=== PATIENT | female | born 1960 | race Caucasian/White ===

== ENCOUNTER 2017-11-07 14:12 | Emergency (ER) | payer OTHER ==
[~2017-11-07 14:12] MED LIST: CIPR250T2 PO; LOMO PO; ZOFR4TAB3 SL
[2017-11-07 14:17] VITALS: BP 166/73; PULSE 67; RESP 20; TEMP 97.8; O2SAT 100
[2017-11-07] MEDS ORDERED: LISI-519 PO (16:07)
[2017-11-07] MEDS ORDERED: ONDANSETRON HCL 4 MG/2 ML VIAL IV PUSH ONE (16:45)
[2017-11-07] MEDS ORDERED: SODIUM CHLORID 0.9% 500 ML INJ 500 ML IV ONE (16:45)
[2017-11-07] MEDS ORDERED: KETOROLAC TROMETHAMINE 30 MG/ML (IVP) VIAL IV PUSH ONE (16:45)
[2017-11-07 17:12] LABS: AUTOMATED NEUTROPHIL # 6.7 TH/MM3 (1.8-7.7); BASOPHIL # 0.1 TH/MM3 (0-0.2); BASOPHIL % 0.9 % (0.0-2.0); EOSINOPHIL % 0.4 % (0.0-4.0); HEMATOCRIT 41.2 % (35.0-46.0); HEMOGLOBIN 13.6 GM/DL (11.6-15.3); LYMPH % 16.3 % (9.0-44.0); LYMPHOCYTE # 1.4 TH/MM3 (1.0-4.8); MEAN CELL VOLUME 87.9 FL (80.0-100.0); MEAN CORPUSCULAR HEMOGLOBIN 29.1 PG (27.0-34.0); MEAN CORPUSCULAR HGB CONC 33.1 % (32.0-36.0); MEAN PLATELET VOLUME 7.8 FL (7.0-11.0); MONOCYTE # 0.3 TH/MM3 (0-0.9); NEUT % 79.4 % (16.0-70.0); PLATELET COUNT 223 TH/MM3 (150-450); RED BLOOD COUNT 4.69 MIL/MM3 (4.00-5.30); RED CELL DISTRIBUTION WIDTH 12.7 % (11.6-17.2); WHITE BLOOD COUNT 8.5 TH/MM3 (4.0-11.0)
[2017-11-07 17:19] LABS: CHLORIDE 103 MEQ/L (98-107); SODIUM (NA) 138 MEQ/L (136-145)
[2017-11-07 17:22] LABS: CALCIUM 9.3 MG/DL (8.5-10.1)
[2017-11-07 17:23] LABS: ALBUMIN 4.1 GM/DL (3.4-5.0); BICARBONATE 27.8 MEQ/L (21.0-32.0); BLOOD UREA NITROGEN 13 MG/DL (7-18); GLUCOSE,RANDOM 97 MG/DL (74-106)
[2017-11-07 17:26] LABS: ALT (GPT) 29 U/L (10-53); AST (GOT) 21 U/L (15-37); GLOMERULAR FILTRATION RATE 65 ML/MIN (>89)
[2017-11-07 17:28] LABS: TOTAL BILIRUBIN ADULT 0.4 MG/DL (0.2-1.0)
[2017-11-07 17:29] LABS: ALKALINE PHOSPHATASE 87 U/L (45-117)
[2017-11-07 17:31] LABS: TROPONIN I LESS THAN 0.02 NG/ML (0.02-0.05)
--- NOTE | 2017-11-07 18:07 | PD ---
HPI Chief Complaint: Hypertension Time Seen by Provider: 16:11 Travel History International Travel<30 days: No Contact w/Intl Traveler<30days: No Traveled to known affect area: No History of Present Illness HPI Patient is a 57-year-old female comes in after an episode of dizziness and nausea. She says she was at work when this started. She says she got nervous and she checked her blood pressure is little elevated, so she came in. She says she's never had any chest pain or shortness of breath. She drink some Sprite and she is feeling better. She reports multiple sick contacts. She says she has a slight headache to the front of her head. She takes blood pressure medicine regularly. She has not vomited. [facility] Past Medical History Diminished Hearing: No Hypertension: Yes Immunizations Current: Yes Tetanus Vaccination: > 5 Years Influenza Vaccination: No ?: Not Past Surgical History Appendectomy: Yes Hysterectomy: Yes (PARTIAL) Social History Alcohol Use: Yes (RARELY) Tobacco Use: No Substance Use: No Allergies-Medications (Allergen,Severity, Reaction): Coded Allergies: adhesive (Unverified Allergy, Severe, BLISTER, 11/07/17) morphine (Unverified Allergy, Severe, Itching, 11/07/17) Reported Meds & Prescriptions Reported Meds & Active Scripts Active Reported Lisinopril 5 Mg Tab 5 Mg PO DAILY Review of Systems Except as stated in HPI: all other systems reviewed are Neg General / Constitutional: No: Fever, Chills Eyes: No: Blurred Vision HENT: Positive: Headaches, Lightheadedness Cardiovascular: No: Chest Pain or Discomfort Respiratory: No: Shortness of Breath Gastrointestinal: Positive: Nausea, No: Vomiting, Abdominal Pain Genitourinary: No: Dysuria Musculoskeletal: No: Myalgias, Edema Skin: No Rash, No Change in Pigmentation Neurologic: Positive: Dizziness, No: Weakness Physical Exam Narrative GENERAL: Awake and alert, in no acute distress. SKIN: Focused skin assessment warm/dry. HEAD: Atraumatic. Normocephalic. EYES: Pupils equal and round. No scleral icterus. EOMI. ENT: Mucous membranes pink and moist. NECK: Trachea midline. No JVD. CARDIOVASCULAR: Regular rate and rhythm. No murmur appreciated. RESPIRATORY: No accessory muscle use. Clear to auscultation. Breath sounds equal bilaterally. GASTROINTESTINAL: Abdomen soft, non-tender, nondistended. MUSCULOSKELETAL: No obvious deformities. No clubbing. No cyanosis. No edema. NEUROLOGICAL: Awake and alert. No obvious cranial nerve deficits. Motor grossly within normal limits. Normal speech. PSYCHIATRIC: Appropriate mood and affect; insight and judgment normal. Data Data Last Documented VS Vital Signs Date Time Temp Pulse Resp B/P (MAP) Pulse Ox O2 Delivery O2 Flow Rate FiO2 11/07/17 16:07 100 Room Air 11/07/17 14:17 97.8 67 20 166/73 (104) Orders Orders Electrocardiogram (11/07/17 14:25) Iv Access Insert/Monitor (11/07/17 16:33) Complete Blood Count With Diff (11/07/17 16:33) Comprehensive Metabolic Panel (11/07/17 16:33) Troponin I (11/07/17 16:33) Sodium Chlorid 0.9% 500 Ml Inj (Ns 500 M (11/07/17 16:45) Ondansetron Inj (Zofran Inj) (11/07/17 16:45) Ketorolac Inj (Toradol Inj) (11/07/17 16:45) Labs Laboratory Tests Test 11/07/17 17:00 White Blood Count 8.5 TH/MM3 Red Blood Count 4.69 MIL/MM3 Hemoglobin 13.6 GM/DL Hematocrit 41.2 % Mean Corpuscular Volume 87.9 FL Mean Corpuscular Hemoglobin 29.1 PG Mean Corpuscular Hemoglobin Concent 33.1 % Red Cell Distribution Width 12.7 % Platelet Count 223 TH/MM3 Mean Platelet Volume 7.8 FL Neutrophils (%) (Auto) 79.4 % Lymphocytes (%) (Auto) 16.3 % Monocytes (%) (Auto) 3.0 % Eosinophils (%) (Auto) 0.4 % Basophils (%) (Auto) 0.9 % Neutrophils # (Auto) 6.7 TH/MM3 Lymphocytes # (Auto) 1.4 TH/MM3 Monocytes # (Auto) 0.3 TH/MM3 Eosinophils # (Auto) 0.0 TH/MM3 Basophils # (Auto) 0.1 TH/MM3 CBC Comment DIFF FINAL Differential Comment Blood Urea Nitrogen 13 MG/DL Creatinine 0.90 MG/DL Random Glucose 97 MG/DL Total Protein 8.0 GM/DL Albumin 4.1 GM/DL Calcium Level 9.3 MG/DL Alkaline Phosphatase 87 U/L Aspartate Amino Transf (AST/SGOT) 21 U/L Alanine Aminotransferase (ALT/SGPT) 29 U/L Total Bilirubin 0.4 MG/DL Sodium Level 138 MEQ/L Potassium Level 3.7 MEQ/L Chloride Level 103 MEQ/L Carbon Dioxide Level 27.8 MEQ/L Anion Gap 7 MEQ/L Estimat Glomerular Filtration Rate 65 ML/MIN Troponin I LESS THAN 0.02 NG/ML MDM Medical Decision Making Medical Screen Exam Complete: Yes Emergency Medical Condition: Yes Medical Record Reviewed: Yes Interpretation(s) ECG shows NSR at 59, no ST elevation or depression. Differential Diagnosis vertigo vs electrolyte abnormalities vs gastritis vs gastroenteritis Narrative Course Patient is a 57-year-old female who comes in complaining of dizziness and nausea. Exam shows no acute abnormalities. She says her symptoms have almost completely resolved. IV status, labs sent. Labs show no acute abnormalities. Given Zofran and Toradol. She reports complete resolution of all of her symptoms. She is requesting to go home. She'll be discharged home to follow with her doctor. Advised to return any time for any worsening symptoms. Diagnosis Primary Impression: Dizziness Additional Impression: Nausea Patient Instructions: Acute Nausea and Vomiting (ED), Dizziness (ED), General Instructions Additional Instructions: Follow-up with your doctor. Drink plenty of fluids. Return to the ED as needed for any worsening symptoms. Disposition: 01 DISCHARGE HOME Condition: Stable Xenia Arredondo MD Nov 07, 2017 18:06
[2017-11-07 18:37] VITALS: BP 138/74
--- NOTE | 2017-11-08 15:43 | EKG ---
Date Performed: 11/07/2017 Time Performed: 14:25:12 PTAGE: 57 years EKG: SINUS BRADYCARDIA POSSIBLE RIGHT VENTRICULAR CONDUCTION DELAY Since previous tracing, no si gnificant change noted BORDERLINE ECG PREVIOUS TRACING : 11/02/2014 21.37 DOCTOR: Tigist Montiel Interpretating Date/Time 11/08/2017 15:42:12
== END 2017-11-07 18:50 | disposition home or self-care (01) ==
LOC: PHED 14:12
DX: R42 Dizziness and giddiness (principal); R11.0 Nausea; R94.31 Abnormal electrocardiogram [ECG] [EKG]; I10 Essential (primary) hypertension; Z88.5 Allergy status to narcotic agent; Z79.899 Other long term (current) drug therapy
CPT/HCPCS: 80053; 84484; 85025; 93005; 96361; 96374; 96375; 99284; J1885; J2405; J7040